=== PATIENT | female | born 1970 ===

== ENCOUNTER 2019-02-24 03:55 | Emergency (ER) | payer SELFPAY ==
[2019-02-24 04:46] LABS: Urine Blood TRACE (NEG); Urine Glucose NEGATIVE (NEG); Urine Protein 1+ (NEG); Urine Specific Gravity >1.030 (1.005-1.030); Urine pH 5.5 (5.0-7.0)
[2019-02-24 04:57] LABS: Absolute Lymphocytes (CBC) 1.5 K/uL (0.7-4.9); Basophils % 0.7 % (0-1.3); Hematocrit 24.2 % (36.0-45.0); MPV 8.7 fL (7.6-11.3); RBC Red Blood Cell Count 3.78 M/uL (3.86-4.86)
[2019-02-24 05:19] LABS: Albumin 3.2 g/dL (3.4-5.0); Bilirubin Direct 0.1 mg/dL (0-0.2); Bilirubin Total 0.4 mg/dL (0.2-1.0); Potassium 3.2 mmol/L (3.5-5.1); Protein, Total 7.1 g/dL (6.4-8.2)
[2019-02-24 05:29] LABS: Blood Morphology Comment NOTED (NOT SEEN); Hypochromasia 2+; Platelet Estimate ADEQ; Urine White Blood Cell Casts OK
[2019-02-24 05:35] LABS: Urine Bacteria <20 /HPF (<20); Urine Culture Reflex Order REFLEXED; Urine Mucus HEAVY /HPF (NONE SEEN); Urine RBC <5 /HPF (NONE SEEN)
[2019-02-24] MEDS ORDERED: CEFTRIAXONE/SWI 1gm 1 GM/10 ML SYR ONE (06:32)
[2019-02-24] MEDS ORDERED: NA CHLORIDE 0.9% 1,000 ML ONE (06:32)
--- NOTE | 2019-02-24 07:02 | RAD REPORT ---
EXAM DESCRIPTION: CT - Abdomen Pelvis W Contrast - 02/24/2019 6:50 am CLINICAL HISTORY: ABD PAIN, patient also details back pain with urinary frequency COMPARISON: None. TECHNIQUE: Biphasic, helical CT imaging of the abdomen and pelvis was performed following 100 ml non -ionic IV contrast. Oral contrast was given. All CT scans are performed using dose optimization technique as appropriate and may include automated exposure control or mA/KV adjustment according to patient size. FINDINGS: No suspicious findings in the lung bases. Anterior right base granuloma present. No cardio megaly or pericardial effusion. The liver, spleen, and pancreas show no suspicious findings. Gallbladder is contracted. No acute find ing suspected. No biliary tree dilatation. Symmetric renal function is seen with no hydronephrosis or suspicious renal mass. No pyelonephritis o r acute parenchymal process. Urinary bladder is only partially filled. No gross abnormality seen. No adrenal abnormalities. No dilated bowel loops or bowel wall thickening. Appendix is normal. No free air, free fluid or infla mmatory stranding. No hernia or abnormal lymphadenopathy. Patient has a very large 22 x 15 x 13 centimeter lobulated heterogeneous solid mass filling the pelvi s and mid abdomen. This has the appearance of a large multi fibroid uterus. Several discrete masses a re present 1 of which has partial calcification. Malignancy is not likely. Endometrium is obscured by the mass. Ovaries are also obscured or displaced. An ovarian process is not suspected. Advanced for age degenerative disc disease L5-S1. IMPRESSION: A 22 centimeter large macrolobulated mass fills the pelvis and lower abdomen. This has t he appearance of a very large multi fibroid uterus. No other acute or significant findings.
--- NOTE | 2019-02-24 07:03 | ER ---
Nurse's Notes [facility] Name: Deepika Viera Age: 48 yrs Sex: Female : 1970 Arrival Date: 02/24/2019 Time: 04:02 Bed 6 Private MD: Diagnosis: Urinary tract infection, site not specified;Anemia in chronic diseases classified elsewhere Presentation: 02/24 04:14 Presenting complaint: Patient states: Reports she started having lower abdominal pain ea that radiates to her back two days ago. Pt reports chills, and urinary frequency. Took 1 gram of Tylenol before coming in [facility]. Transition of care: patient was not received from another setting of care. Onset of symptoms was February 24, 2019. Risk Assessment: Do you want to hurt yourself or someone else? Patient reports no desire to harm self or others. Initial Sepsis Screen: Does the patient meet any 2 criteria? No. Patient's initial sepsis screen is negative. Does the patient have a suspected source of infection? No. Patient's initial sepsis screen is negative. Care prior to arrival: Medication(s) given: Tylenol, 1000 mg. 04:14 Method Of Arrival: Ambulatory ea 04:14 Acuity: BYRON 3 ea Triage Assessment: 04:17 General: Appears uncomfortable, Behavior is calm, cooperative, appropriate for age. ea Pain: Complains of pain in suprapubic area, posterior aspect of right lateral abdomen, posterior aspect of left lateral abdomen, right lower quadrant and left lower quadrant. Neuro: Level of Consciousness is awake, alert, obeys commands, Oriented to person, place, time, situation. Cardiovascular: Patient's skin is warm and dry. Respiratory: Airway is patent Respiratory effort is even, unlabored, Respiratory pattern is regular, symmetrical. GI: Abdomen is non-distended, Reports lower abdominal pain. : Parent/caregiver report the patient having urinary frequency. Derm: Skin is dry, Skin is normal, Skin temperature is warm. Historical: - Allergies: 04:19 No Known Allergies; ea - Home Meds: 04:19 None [Active]; ea - PMHx: 04:19 None; ea - Immunization history:: Adult Immunizations up to date. - Social history:: Smoking status: Patient uses tobacco products, smokes one pack cigarettes per day. - Ebola Screening: : No symptoms or risks identified at this time. Screenin:16 Abuse screen: Denies threats or abuse. Nutritional screening: No deficits noted. ea Tuberculosis screening: No symptoms or risk factors identified. Fall Risk None identified. Assessment: 04:19 Reassessment: see triage assessment. ea 05:30 Reassessment: Patient and/or family updated on plan of care and expected duration. Pain ea level reassessed. Patient is alert, oriented x 3, equal unlabored respirations, skin warm/dry/pink. Patient states feeling better. 06:36 Reassessment: Patient and/or family updated on plan of care and expected duration. Pain ea level reassessed. Patient is alert, oriented x 3, equal unlabored respirations, skin warm/dry/pink. Patient states feeling better. 06:36 Reassessment: Pt taken to CT. ea 08:59 Reassessment: prescriptions called in to [facility] upon request of patient. ss Vital Signs: 04:16 BP 123 / 80; Pulse 74; Resp 18; Temp 97.9; Pulse Ox 100% ; Weight 83.91 kg; Height 5 ea ft. 4 in. (162.56 cm); Pain 7/10; 05:30 BP 106 / 64; Pulse 68; Resp 18; Pulse Ox 100% on R/A; ea 04:16 Body Mass Index 31.75 (83.91 kg, 162.56 cm) ea ED Course: 04:02 Patient arrived in ED. ag3 04:07 Camron Campos MD is Attending Physician. tw4 04:14 Lani Castaneda RN is Primary Nurse. ea 04:16 Triage completed. ea 04:16 Arm band placed on right wrist. Patient placed in an exam room, on a stretcher, on ea pulse oximetry. 04:17 Patient has correct armband on for positive identification. Bed in low position. Call ea light in reach. Side rails up X2. 04:44 Inserted saline lock: 20 gauge in right antecubital area, using aseptic technique. ea Blood collected. 06:54 CT Abd/Pelvis - IV Contrast Only In Process Unspecified. EDMS 08:59 No provider procedures requiring assistance completed. IV discontinued, intact, ss bleeding controlled, No redness/swelling at site. Pressure dressing applied. Administered Medications: 06:35 Drug: Rocephin - (cefTRIAXone) 1 grams Route: IVPB; Infused Over: 30 mins; Site: right ea antecubital; 06:36 Drug: NS 0.9% 1000 ml Route: IV; Rate: 1 bolus; Site: right antecubital; ea 07:09 Drug: Ketorolac 30 mg Route: IVP; Site: right antecubital; ea Outcome: 07:01 Discharge ordered by tw4 08:59 Discharged to home ambulatory. 08:59 Condition: good 08:59 Discharge instructions given to patient, Instructed on discharge instructions, follow up and referral plans. medication usage, Demonstrated understanding of instructions, follow-up care, medications, Prescriptions given X 2. 09:00 Patient left the ED. ss Addendum: 02/27/2019 07:47 Addendum: Culture Results: Positive urine culture. No further action required. Bacteria s s sensitive to prescribed antibiotic. Signatures: Dispatcher [employer] EDMS Helena Lopez RN RN ss Antunez, Elena, RN RN ea Wadley, Terrence, MD MD tw4 Suyapa Gordon 3
--- NOTE | 2019-02-24 07:04 | EDPHYS ---
Physician Documentation [facility] Name: Deepika Viera Age: 48 yrs Sex: Female : 1970 Arrival Date: 02/24/2019 Time: 04:02 Bed 6 Private MD: ED Physician Camron Campos HPI: 02/24 04:51 This 48 yrs old Female presents to ER via Ambulatory with complaints of Abdominal Pain. tw4 04:51 The patient presents with abdominal pain in the lower abdomen. Onset: The tw4 symptoms/episode began/occurred 3 day(s) ago. The symptoms do not radiate. Associated signs and symptoms: none. The symptoms are described as sharp. Modifying factors: The symptoms are alleviated by nothing, the symptoms are aggravated by nothing. The patient has not experienced similar symptoms in the past. Historical: - Allergies: 04:19 No Known Allergies; ea - Home Meds: 04:19 None [Active]; ea - PMHx: 04:19 None; ea - Immunization history:: Adult Immunizations up to date. - Social history:: Smoking status: Patient uses tobacco products, smokes one pack cigarettes per day. - Ebola Screening: : No symptoms or risks identified at this time. ROS: 04:51 Constitutional: Negative for fever, chills, and weight loss, Eyes: Negative for injury, tw4 pain, redness, and discharge, Cardiovascular: Negative for chest pain, palpitations, and edema, Respiratory: Negative for shortness of breath, cough, wheezing, and pleuritic chest pain, Back: Negative for injury and pain, : Negative for injury, bleeding, discharge, and swelling, MS/Extremity: Negative for injury and deformity, Skin: Negative for injury, rash, and discoloration, Neuro: Negative for headache, weakness, numbness, tingling, and seizure. 04:51 Abdomen/GI: Positive for abdominal pain, Negative for nausea and vomiting, nausea, vomiting, and diarrhea, nausea. Exam: 04:51 Constitutional: This is a well developed, well nourished patient who is awake, alert, tw4 and in no acute distress. Head/Face: Normocephalic, atraumatic. Chest/axilla: Normal chest wall appearance and motion. Nontender with no deformity. No lesions are appreciated. Cardiovascular: Regular rate and rhythm with a normal S1 and S2. No gallops, murmurs, or rubs. Normal PMI, no JVD. No pulse deficits. Respiratory: Lungs have equal breath sounds bilaterally, clear to auscultation and percussion. No rales, rhonchi or wheezes noted. No increased work of breathing, no retractions or nasal flaring. 04:51 MS/ Extremity: Pulses equal, no cyanosis. Neurovascular intact. Full, normal range of motion. Neuro: Awake and alert, GCS 15, oriented to person, place, time, and situation. Cranial nerves II-XII grossly intact. Motor strength 5/5 in all extremities. Sensory grossly intact. Cerebellar exam normal. Normal gait. 04:51 Abdomen/GI: Inspection: abdomen appears normal. Vital Signs: 04:16 BP 123 / 80; Pulse 74; Resp 18; Temp 97.9; Pulse Ox 100% ; Weight 83.91 kg; Height 5 ea ft. 4 in. (162.56 cm); Pain 7/10; 05:30 BP 106 / 64; Pulse 68; Resp 18; Pulse Ox 100% on R/A; ea 04:16 Body Mass Index 31.75 (83.91 kg, 162.56 cm) ea MDM: 04:07 Patient medically screened. tw4 06:45 Data reviewed: vital signs, nurses notes. Data interpreted: Pulse oximetry: tw4 Interpretation: normal. Counseling: I had a detailed discussion with the patient and/or guardian regarding: the historical points, exam findings, and any diagnostic results supporting the discharge/admit diagnosis. Special discussion: Based on the patient's Hx, exam, and Dx evaluation, there is no indication for emergent surgery or inpatient Tx. It is understood by the patient/guardian that if the Sx's persist or worsen they need to return immediately for re-evaluation. 02/24 04:20 Order name: Basic Metabolic Panel; Complete Time: 06:08 tw4 02/24 06:08 Interpretation: Normal except: K 3.2; CL 109; GLUC 107; GFR 79. tw4 02/24 04:20 Order name: CBC with Diff; Complete Time: 06:08 tw4 02/24 06:08 Interpretation: Normal except: WBC 11.8; RBC 3.78; HGB 7.1; HCT 24.2; MCV 63.9; MCH tw4 18.7; MCHC 29.3; LYM% 13.0; MANISHA% 76.8; RDW 18.9; NEUT A 9.1. 02/24 04:20 Order name: Creatinine for Radiology; Complete Time: 06:08 [facility] 02/24 04:20 Order name: Hepatic Function; Complete Time: 06:08 [facility] 02/24 06:09 Interpretation: Normal except: ALB 3.2; GLOB 3.9; A/G 0.8; AST 8. [facility] 02/24 04:20 Order name: Lipase; Complete Time: 06:08 [facility] 02/24 04:20 Order name: Urine Microscopic Only; Complete Time: 06:08 [facility] 02/24 06:09 Interpretation: Normal except: UWBC 10-20. [facility] 02/24 04:40 Order name: Urine Dipstick--Ancillary (enter results) [facility] 02/24 04:40 Order name: Urine --Ancillary (enter results) [facility] 02/24 04:47 Order name: Urine --Ancillary; Complete Time: 06:08 [facility] 02/24 04:47 Order name: Urine Dipstick-Ancillary; Complete Time: 06:08 [facility] 02/24 06:09 Interpretation: UESTR 1+; UPROT 1+; UBLD TRACE. [facility] 02/24 05:30 Order name: CBC Smear Scan; Complete Time: 06:08 [facility] 02/24 05:39 Order name: Urine Culture [facility] 02/24 06:11 Order name: CT Abd/Pelvis - IV Contrast Only; Complete Time: 08:09 [facility] 02/24 04:20 Order name: IV Saline Lock; Complete Time: 04:43 [facility] 02/24 04:20 Order name: Labs collected and sent; Complete Time: 04:43 [facility] 02/24 04:20 Order name: Urine Dipstick-Ancillary (obtain specimen); Complete Time: 04:27 tw4 Administered Medications: 06:35 Drug: Rocephin - (cefTRIAXone) 1 grams Route: IVPB; Infused Over: 30 mins; Site: right ea antecubital; 06:36 Drug: NS 0.9% 1000 ml Route: IV; Rate: 1 bolus; Site: right antecubital; ea 07:09 Drug: Ketorolac 30 mg Route: IVP; Site: right antecubital; ea Disposition: 02/24/19 07:01 Discharged to Home. Impression: Urinary tract infection, site not specified, Anemia in chronic diseases classified elsewhere. - Condition is Stable. - Discharge Instructions: Iron Deficiency Anemia, Adult, Urinary Tract Infection, Adult. - Prescriptions for Ferrous Sulfate 325 mg (65 mg Iron) Oral Tablet - take 1 tablet by ORAL route every 8 hours; 90 tablet. Macrodantin 100 mg Oral Capsule - take 1 capsule by ORAL route every 6 hours for 10 days; 40 capsule. - Work release form, Medication Reconciliation Form, Thank You Letter, Antibiotic Education, Prescription Opioid Use form. - Follow up: Private Physician; When: Upon discharge from the Emergency Department; Reason: If symptoms return, Recheck today's complaints, Continuance of care. - Problem is new. - Symptoms have improved. Signatures: Dispatcher [employer] EDOvidio Khanna MD MD rn Smirch, Shelby, RN RN ss Antunez, Elena, RN RN ea Wadley, Terrence, MD MD tw4 Corrections: (The following items were deleted from the chart) 09:00 07:01 02/24/2019 07:01 Discharged to Home. Impression: Urinary tract infection, site ss not specified; Anemia in chronic diseases classified elsewhere. Condition is Stable. Forms are Medication Reconciliation Form, Thank You Letter, Antibiotic Education, Prescription Opioid Use. Follow up: Private Physician; When: Upon discharge from the Emergency Department; Reason: If symptoms return, Recheck today's complaints, Continuance of care. Problem is new. Symptoms have improved. tw4
[2019-02-24] MEDS ORDERED: KETOROLAC 30 MG/ML INJ ONE (07:08)
== END 2019-02-24 09:00 | disposition home or self-care (01) ==
LOC: ER 03:55
DX: N39.0 Urinary tract infection, site not specified (principal); D63.8 Anemia in other chronic diseases classified elsewhere; F17.210 Nicotine dependence, cigarettes, uncomplicated
CPT/HCPCS: 36415; 74177; 80048; 80076; 81003; 81015; 81025; 83690; 85025; 87077; 87086; 87088; 87186; 96374; 96375; 99284; J0696; J7030; Q9967